=== PATIENT | female | born 1965 | race Caucasian/White ===

== ENCOUNTER 2020-03-19 00:13 | Emergency (ER) | payer OTHER ==
--- NOTE | 2020-03-19 00:53 | ED.PDOC ---
History of Present Illness - General Chief Complaint: General Stated Complaint: right thumb pain Time Seen by Provider: 03/19/20 00:22 Source: patient, RN notes reviewed, Vital Signs reviewed Exam Limitations: no limitations - History of Present Illness Initial Comments: This is a 54-year-old female presenting to the emergency department with right thumb pain that began this morning when she woke up around 6 AM. She denies any clear trauma, but states she did hit the back of her hand while shutting the rear door of her car last night. She denies any pain at that time. She does have a remote history of pain in her toe that she attributed to gout. She has never had any arthrocentesis or joint aspiration to confirm this diagnosis. She does have a family history of gout. She denies any fever. Pain is localized to the dorsal aspect of the right thumb over the PIP joint, worse with movement. She denies any fever. She is taken Tylenol at home without any improvement. Allergies/Adverse Reactions: Allergies Penicillins Allergy (Verified 02/04/14 08:21) Home Medications: Ambulatory Orders ALPRAZolam [Xanax] 0.25 mg PO PRN PRN 02/04/14 Amitriptyline HCl [Elavil] 25 mg PO BEDTIME 02/04/14 Acetamin W/Cod #3 Tab [Tylenol w/CODEINE #3] 1 - 2 tablet PO Q6H PRN #20 tab 03/19/20 Ibuprofen [Motrin] 400 mg PO Q6H PRN #20 tab 03/19/20 predniSONE 40 mg PO DAILY 5 Days #10 tab 03/19/20 Review of Systems - Review of Systems Constitutional: Denies: chills, fever Musculoskeletal: States: gout, joint pain. Denies: back pain, joint swelling, muscle stiffness, neck pain Neurological: Denies: numbness, paresthesia, tingling, weakness Past Medical History (General) - Patient Medical History Hx Seizures: No Hx Stroke: No Hx Dementia: No Hx Asthma: No Hx of COPD: No Hx Cardiac Disorders: No Hx Congestive Heart Failure: No Hx Pacemaker: No Hx Hypertension: No Hx Thyroid Disease: No Hx Diabetes: No Hx Gastroesophageal Reflux: Yes Hx Renal Disease: No Hx Cancer: No Hx of HIV: No Hx Hepatitis C: No Hx MRSA: No - Vaccination History Hx Tetanus, Diphtheria Vaccination: No Hx Influenza Vaccination: No Hx Pneumococcal Vaccination: No - Social History Hx Tobacco Use: Yes Hx Chewing Tobacco Use: No Hx Alcohol Use: No Hx Substance Use: No Hx Substance Use Treatment: No Hx Depression: No Hx Physical Abuse: No Hx Emotional Abuse: No Hx Suspected Abuse: No - Female History Patient : No Physical Exam - Physical Exam General Appearance: WD/WN, no apparent distress Respiratory: lungs clear, normal breath sounds, no respiratory distress, no accessory muscle use Cardiovascular/Chest: normal peripheral pulses, regular rate, rhythm, no gallop Extremities Exam: no evidence of injury, no edema, tenderness - Right thumb PIP joint, painful with extension of the thumb. There is no swelling, no deformity. Cap refill less than 2 seconds, radial pulses normal Neurologic: no motor/sensory deficits, alert, normal mood/affect Skin Exam: normal color, warm/dry Progress - Progress Progress: 03/19/20 01:22 Right thumb pain, etiology unclear. Most likely diagnoses include extensor tendinitis versus gout. The joint is not red or swollen, but she states she has had possible gout flares in her toe before in the past. Treatment will be relatively the same either way. Will discharge home with pain medication, anti- inflammatory, steroids. Recommended follow-up with PCP in 2 to 3 days for recheck. Strict warnings given to return the emergency room for worsening pain, swelling, fever, numbness/tingling, or any other concerns. Recommended Velcro thumb spica splint as needed for comfort, particularly at night. We do not have them available here, patient was provided a handwritten prescription for splint to be taken to pharmacy/medical supply store [facility] To DO [facility] #[id number] - Results/Orders Results/Orders: EXAM DESCRIPTION: Thumb,Right RadLex: XR FINGERS Views: 3 CLINICAL HISTORY: Pain at PIP joint; COMPARISON: None. FINDINGS: The osseous structures all appear intact.. There are no fractures. A tiny area of exostosis is noted along the proximal first metacarpal. The joint spaces appear unremarkable. There is no evidence for bony erosion or destruction. The soft tissues are normal. There is no foreign body. IMPRESSION: 1. No acute findings. Normal appearing thumb with normal interphalangeal and phalangeal metacarpal joint.. Electronically signed by: Maria Fernanda Bernard MD 03/19/2020 1:06 AM Departure - Departure Clinical Impression: Pain of right thumb, Extensor tendinitis of hand, Family history of gout Disposition: Discharge to Home or Self Care Condition: Good Departure Forms: ED Discharge - Pt. Copy, Patient Portal Self Enrollment Instructions: Gout (DC), Tendonitis (DC) Activity: increase activity as tolerated Referrals: Juani Bustillo MD [Primary Care Provider] - 1-5 Days Hilario Tompkins MD [Active Staff] - 1-2 Weeks Prescriptions: Ibuprofen [Motrin] 400 mg PO Q6H PRN #20 tab PRN Reason: Mild To Moderate Pain predniSONE 40 mg PO DAILY 5 Days #10 tab Acetamin W/Cod #3 Tab [Tylenol w/CODEINE #3] 1 - 2 tablet PO Q6H PRN #20 tab PRN Reason: Moderate To Severe Pain Home Medications: Ambulatory Orders ALPRAZolam [Xanax] 0.25 mg PO PRN PRN 02/04/14 Amitriptyline HCl [Elavil] 25 mg PO BEDTIME 02/04/14 Acetamin W/Cod #3 Tab [Tylenol w/CODEINE #3] 1 - 2 tablet PO Q6H PRN #20 tab 03/19/ Ibuprofen [Motrin] 400 mg PO Q6H PRN #20 tab 03/19/20 predniSONE 40 mg PO DAILY 5 Days #10 tab 03/19/20 Additional Instructions: Wear splint as needed for comfort, particularly at night. Return to emergency room immediately for increased pain, increased swelling, fever, or any other concerns
--- NOTE | 2020-03-19 01:08 | RAD ---
EXAM DESCRIPTION: Thumb,Right RadLex: XR FINGERS Views: 3 CLINICAL HISTORY: Pain at PIP joint; COMPARISON: None. FINDINGS: The osseous structures all appear intact.. There are no fractures. A tiny area of exostosis is noted along the proximal first metacarpal. The joint spaces appear unremarkable. There is no evidence for bony erosion or destruction. The soft tissues are normal. There is no foreign body. IMPRESSION: 1. No acute findings. Normal appearing thumb with normal interphalangeal and phalangeal metacarpal joint.. Electronically signed by: Maria Fernanda Bernard MD 03/19/2020 1:06 AM CDT
[2020-03-19 01:17] VITALS: O2SAT 96
[2020-03-19 01:22] VITALS: BP 130/98; TEMP 97.9
== END 2020-03-19 01:10 | disposition home or self-care (01) ==
LOC: ER 00:13
DX: M77.8 Other enthesopathies, not elsewhere classified (principal); Z88.0 Allergy status to penicillin; Z79.899 Other long term (current) drug therapy